=== PATIENT | female | born 1955 | race African-American/Black ===

== ENCOUNTER 2020-05-25 02:33 | Observation (INO) ==
[2020-05-25] MEDS ORDERED: ALUM/MAG/SIMETH/LIDO VISC 1:1 30 ML BOTTLE PO STA (03:00)
[2020-05-25 03:20] LABS: Basophils # 0.1 10*3/uL (0.0-0.2); Basophils % 0.8 % (0.0-0.8); Eosinophils # 0.1 10*3/uL (0.0-0.87); Hematocrit 43.1 VOL% (35.7-47.0); Hemoglobin 14.3 GM/DL (12.0-16.0); Immature Granulocytes % 0.4 %; Immature Granulocytes Absolute 0.04 #; Lymphocytes # 1.9 10*3/uL (1.4-4.0); Lymphocytes % 20.6 % (21.3-54.2); Mean Corpuscular HGB Conc 33.2 GM/DL (32-36); Mean Corpuscular Volume 87.2 FL (87-102); Mean Platelet Volume 10.8 FL (9.6-12.0); Monocytes % 7.7 % (1.7-12.7); Neutrophils % 69.5 % (38.7-73.9); Platelet Count 325 T/CUMM (130-400); Red Blood Count 4.94 MC/CUMM (3.8-5.5); Red Cell Distribution Width 13.4 % (9.3-17.3); White Blood Count 9.1 T/CUMM (4-12)
[2020-05-25 03:32] LABS: Bacteria,Urine Occasional /HPF (Few); Bilirubin,Urine Negative (Negative); Blood, Urine Small mg/dL (Negative); Glucose,Urine (UA) Negative (Negative); Ketones,Urine Negative (Negative); Nitrite,Urine Negative (Negative); Protein,Urine Negative; RBC,Urine 1 /HPF (0-4); Squamous Epithelial Cell,Urine Occasional /HPF (0-10); Urine Appearance CLEAR (Clear); Urine Color Yellow (Yellow); Urine Specific Gravity 1.008 (1.001-1.035); WBC,Urine <1 /HPF (0-6)
[2020-05-25 03:41] LABS: Albumin 3.5 G/DL (3.4-5.0); Bilirubin,Total 0.5 MG/DL (0.2-1.0); Calcium 9.2 MG/DL (8.5-10.1); Osmolality,Calculated 269.1 MOS/KG (273-304)
[2020-05-25] MEDS ORDERED: ONDANSETRON 4 MG/2 ML VIAL IV ONE (03:49)
[2020-05-25] MEDS ORDERED: MORPHINE 4 MG/1 ML VIAL IV STA (03:49)
[2020-05-25] MEDS ORDERED: ONDANSETRON 4 MG/2 ML VIAL IV PRN (04:04)
[2020-05-25] MEDS ORDERED: GLUCAGON 1 MG VIAL IM PRN (04:04)
[2020-05-25] MEDS ORDERED: DEXTROSE 50% 25 GM/50 ML VIAL IV PRN (04:04)
[2020-05-25] MEDS ORDERED: DEXTROSE 50% 25 GM/50 ML SYRINGE IV PRN (04:31)
[2020-05-25] MEDS: DEXTROSE 5% NACL 0.45% 1,000 ML IV SCH ×3 (05:02→20:44)
[2020-05-25] MEDS: MORPHINE 4 MG/1 ML VIAL IV PRN ×2 (08:30→13:26)
[2020-05-25] MEDS ORDERED: MECLIZINE 25 MG TABLET PO PRN (09:07)
[2020-05-25] MEDS ORDERED: ESTRADIOL 0.1 MG/24 HR TRANSDERM SCH (09:15)
[2020-05-25 10:16] LABS: Albumin 3.5 G/DL (3.4-5.0); Bilirubin,Direct 0.14 MG/DL (0.0-0.20); Bilirubin,Indirect 0.4 MG/DL (0.0-1.0); Bilirubin,Total 0.5 MG/DL (0.2-1.0); Total Protein 7.5 G/DL (6.4-8.3)
[2020-05-25] MEDS: HYDROmorphone 2 MG/1 ML VIAL IV PRN (17:15)
[2020-05-26] MEDS: HYDROmorphone 2 MG/1 ML VIAL IV PRN ×2 (00:46→15:07)
[2020-05-26] MEDS: DEXTROSE 5% NACL 0.45% 1,000 ML IV SCH ×2 (04:26→15:07)
[2020-05-26 05:59] LABS: Albumin 2.7 G/DL (3.4-5.0); Bilirubin,Direct 0.1 MG/DL (0.0-0.20); Bilirubin,Indirect 0.3 MG/DL (0.0-1.0); Bilirubin,Total 0.4 MG/DL (0.2-1.0); Total Protein 6.6 G/DL (6.4-8.3)
[2020-05-26] MEDS ORDERED: LEVOTHYROXINE 75 MCG TABLET PO SCH (06:30)
[2020-05-26] MEDS ORDERED: CETIRIZINE 10 MG TABLET PO SCH (09:00)
[2020-05-26] MEDS ORDERED: OLMESARTAN 20 MG TABLET PO SCH (09:00)
[2020-05-26] MEDS ORDERED: hydroCHLOROthiazide 12.5 MG CAPSULE PO SCH (09:00)
[2020-05-26] MEDS ORDERED: CALCIUM (CARBONATE)/VITAMIN D 600 MG-400 UNIT TABLET PO SCH (09:00)
[2020-05-26] MEDS ORDERED: OMEPRAZOLE ODT 20 MG TABLET PO SCH (09:00)
[2020-05-26] MEDS ORDERED: SIMVASTATIN 20 MG TABLET PO SCH (09:00)
[2020-05-26 16:00] VITALS: BP 134/65
== END 2020-05-26 17:18 | disposition home or self-care (01) ==
LOC: N.EDINP 02:33 → N.ED 02:33 → N.5E 05:02
PROVIDERS: ADMIT Family Medicine; ATTEND Family Medicine